=== PATIENT | female | born 1965 | race Caucasian/White ===

== ENCOUNTER → 2020-05-28 13:20 | Outpatient (BNVA) | payer OTHER, SELFPAY | PROVIDERS: Visit Provider Physician Assistant Medical | DX: S39.012A Strain of muscle, fascia and tendon of lower back, initial encounter (principal); W18.40XA Slipping, tripping and stumbling without falling, unspecified, initial encounter | CPT/HCPCS: 72100; 99203 ==

== ENCOUNTER → 2020-06-01 09:41 | Outpatient (BNVA) | payer OTHER, SELFPAY | PROVIDERS: Visit Provider Physician Assistant Medical | DX: S39.012D Strain of muscle, fascia and tendon of lower back, subsequent encounter (principal); X58.XXXD Exposure to other specified factors, subsequent encounter | CPT/HCPCS: 99213 ==

== ENCOUNTER → 2020-06-07 09:34 | Outpatient (BNVA) | payer OTHER, SELFPAY | PROVIDERS: Visit Provider Physician Assistant Medical | DX: S39.012D Strain of muscle, fascia and tendon of lower back, subsequent encounter (principal); X58.XXXD Exposure to other specified factors, subsequent encounter | CPT/HCPCS: 99213 ==

== ENCOUNTER → 2020-06-22 15:44 | Outpatient (BNVA) | payer OTHER, SELFPAY | PROVIDERS: Visit Provider Physician Assistant Medical | DX: S33.9XXD Sprain of unspecified parts of lumbar spine and pelvis, subsequent encounter (principal); X58.XXXD Exposure to other specified factors, subsequent encounter | CPT/HCPCS: 99213 ==

== ENCOUNTER → 2020-07-02 15:51 | Outpatient (BNVA) | payer OTHER, SELFPAY | PROVIDERS: Visit Provider Physician Assistant | DX: S39.012D Strain of muscle, fascia and tendon of lower back, subsequent encounter (principal); X58.XXXD Exposure to other specified factors, subsequent encounter | CPT/HCPCS: 99213 ==

== ENCOUNTER → 2020-07-13 15:17 | Outpatient (BNVA) | payer OTHER, SELFPAY | PROVIDERS: Visit Provider Physician Assistant Medical | DX: S39.012D Strain of muscle, fascia and tendon of lower back, subsequent encounter (principal); X58.XXXD Exposure to other specified factors, subsequent encounter | CPT/HCPCS: 99213 ==

== ENCOUNTER 2020-07-19 16:31 | Outpatient (REF) | payer OTHER, SELFPAY ==
--- NOTE | ~2020-07-19 | MR_ITS ---
EXAMINATION: MR LUMBAR SPINE WITHOUT CONTRAST CLINICAL INFORMATION: 55-year-old with history of jolting injury, with left lower extremity weakness. COMPARISON: None TECHNIQUE: MRI of the lumbar spine was obtained using routine sequences without contrast. FINDINGS: Coronal Alignment:?Normal. Sagittal Alignment:?Normal. Lumbosacral Junction:?Normal. Vertebral Bodies: Normal height. Bone Marrow: No significant marrow-replacing process or bone marrow edema. Conus Medullaris:?Terminates at L1.?Morphology and signal is normal. Intradural Nerve Roots: Within normal limits. L5-S1: Disc space height is well maintained. Tiny central disc protrusion noted without neural impingement. No significant spondylosis. Minor bilateral facet arthropathy without significant canal or neural foraminal stenosis. There is a 12 mm perineural cyst in the sacral canal at S2. L4-L5: Disc space height is well maintained with minimal posterolateral disc protrusion bilaterally. No significant spondylosis. There is mild facet hypertrophic change bilaterally without significant canal or neural foraminal stenosis. L3-L4: Disc space height is well maintained with minimal disc desiccation. There is mild anterolateral spondylosis asymmetric to the left and minimal disc bulging with mild facet atrophic change and ligamentum flavum thickening with no significant canal or neural foraminal stenosis. L2-L3: Disc space height is well maintained with mild disc desiccation and central Schmorl's nodes. There is mild anterior marginal spondylosis and minimal disc bulging with mild ligament flavum thickening and facet atrophic change with no significant canal or neural foraminal stenosis. L1-L2: Disc space height is well maintained with normal disc signal. There is [id number] anterior marginal spondylosis and there is minimal disc bulging with no significant canal or neural foraminal stenosis. Minor facet arthrosis on the left. There is mild disc space height loss and disc desiccation with Schmorl's nodes and mild spondylosis at T12-L1 and T11-T12. There is [id number] bilateral facet arthropathy at T11-T12 and partially imaged on the left at T10-T11. Paraspinal/Retroperitoneal: The paravertebral soft tissues appear unremarkable. MR/MR lumbar spine wo con IMPRESSION: 1. Normal spinal alignment with mild multilevel disc desiccation without significant disc space height loss, with mild degrees of multilevel thoracolumbar spondylosis. 2. Minimal central disc protrusion at L5-S1 without neural impingement and mild degrees of multilevel disc bulging with minor degrees of multilevel bilateral facet arthropathy without significant spinal canal stenosis or neural foraminal compromise and no evidence for neural impingement.
== END 2020-07-19 16:32 | disposition home or self-care (01) ==
LOC: HO.MRI 16:31
PROVIDERS: Visit Provider Internal Medicine
DX: M62.81 Muscle weakness (generalized) (principal)
CPT/HCPCS: 72148

== ENCOUNTER → 2020-07-27 10:33 | Outpatient (BNVA) | payer OTHER, SELFPAY | PROVIDERS: Visit Provider Physician Assistant Medical | DX: S33.9XXD Sprain of unspecified parts of lumbar spine and pelvis, subsequent encounter (principal); X58.XXXD Exposure to other specified factors, subsequent encounter | CPT/HCPCS: 99213 ==